=== PATIENT | female | born 1995 | race Caucasian/White ===

== ENCOUNTER 2018-12-22 18:55 | Inpatient (IN) | payer OTHER ==
[~2018-12-22] VITALS: Ht 157.5 cm; Wt 49.0 kg
[2018-12-22 18:55] VITALS: BP_SYST 120
--- NOTE | 2018-12-22 18:55 | NUR ---
BROUGHT IN BY [facility], PLACED IN BED #1 AND TRIAGED. REPORT GIVEN TO SUPERVISOR PHOTOSTAT
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
--- NOTE | 2018-12-22 20:15 | NUR ---
ER Dr. Brambila at bedside examining patient.
[2018-12-22] MEDS ORDERED: MORPHINE 4 MG/ML INJ. SYRINGE IVP ONE (20:30)
[2018-12-22] MEDS ORDERED: DIPHENHYDRAMINE INJ 50 MG/ML VIAL IVP ONE ×2 (20:30→22:00)
[2018-12-22] MEDS ORDERED: fentaNYL CITRATE/PF 100 MCG/2 ML AMP IVP ONE ×2 (21:15→22:00)
[2018-12-22] MEDS: NORMAL SALINE 5 ML DISP.SYRIN IVF SCH ×2 (22:00→22:52)
[2018-12-22] MEDS ORDERED: LORazepam 2 MG/ML VIAL IVP PRN (22:00)
[2018-12-22] MEDS ORDERED: MORPHINE 2 MG/ML INJ. SYRINGE IVP PRN (22:00)
[2018-12-22] MEDS ORDERED: ACETAMINOPHEN 325 MG TABLET PO PRN (22:00)
--- NOTE | 2018-12-22 22:00 | NUR ---
Posterior Long leg splint applied to patient's right leg. +cap refill observed in great toe. Pt tolerated well.
[2018-12-22 22:09] LABS: BASOPHILS % (AUTO) 0.2 % (0.0-2.0); EOSINOPHILS % (AUTO) 0.1 % (0.0-4.0); HEMATOCRIT 39.5 % (36-48); HEMOGLOBIN 13.9 g/dL (12.0-16.0); LYMPHOCYTES # (AUTO) 1.9 K/uL (1.0-5.5); LYMPHOCYTES % (AUTO) 12.3 % (20.5-51.5); MEAN CORPUSCULAR HEMOGLOBIN 33 pg (27-31); MEAN CORPUSCULAR HGB CONC 35 % (32-36); MEAN CORPUSCULAR VOLUME 94 fL (79.0-98.0); MONOCYTES # (AUTO) 0.8 K/uL (0.0-1.0); MONOCYTES % (AUTO) 5.5 % (1.7-9.3); NEUTROPHILS # (AUTO) 12.3 K/uL (1.8-7.7); NEUTROPHILS % (AUTO) 81.9 % (40.0-70.0); PLATELET COUNT (AUTO) 173 K/uL (130-430); RED BLOOD CELL COUNT(AUTO) 4.22 MIL/uL (4.2-6.2); RED CELL DISTRIBUTION WIDTH 12.4 % (9.0-15.0); WHITE BLOOD COUNT (AUTO) 15.1 K/uL (4.8-10.8)
--- NOTE | 2018-12-22 22:17 | NUR ---
Transfer to [facility]. IV present no sign or symptom of infiltration.
--- NOTE | 2018-12-22 22:17 | NUR ---
Patient will be admitted to care of Dr. Cielo Herbert. Admitted to Med Surg unit. Will go to room 109 C. Belongings list completed. Summary report printed. Report will be given at bedside.
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
[2018-12-22 22:21] LABS: CALCIUM 8.9 mg/dL (8.4-11.0); CREATININE 0.76 mg/dL (0.55-1.30); POTASSIUM 3.6 mmol/L (3.5-5.1)
[2018-12-22 22:47] VITALS: BP_SYST 125
--- NOTE | 2018-12-22 22:49 | NUR ---
Bedpan: Patient was assisted by GISELE Milligan to use bedpan. Unable to remove patient's black jeans due to right leg splint. Jeans removed using cassy, patient okay'd. Patient voided clear, yellow urine. Sample for urinalysis sent to lab.
--- NOTE | 2018-12-22 23:10 | NUR ---
Wound care: Abrasions present to patient's right knee, right hip, and left hip. Sites were cleansed with NS, patted dry with sterile gauze, covered with nonadhesive dressing, secured with 2 inch paper tape. Patient tolerated well.
[2018-12-23] VITALS: BP_SYST 124
[2018-12-23] MEDS: MORPHINE 4 MG/ML INJ. SYRINGE IVP PRN (01:36)
--- NOTE | 2018-12-23 01:36 | NUR ---
Pain: Patient complaining of RLE pain 8/10. Morphine 4 MG indicated. Education provided regarding indications and side effects, patient verbalized understanding. Medication administered intravenously per MD order via left AC IV site. No adverse effects noted. Call light with patient. Safety, fall precautions observed. Will continue monitoring.
[2018-12-23 02:10] LABS: BILIRUBIN,URINE NEGATIVE (NEGATIVE); BLOOD, URINE 3+ (NEGATIVE); CLARITY/URINE SL CLOUDY (CLEAR); COLOR,URINE YELLOW (YELLOW); GLUCOSE,URINE NEGATIVE (NEGATIVE); KETONES,URINE 1+ (NEGATIVE); LEUKOCYTE ESTERASE ,URINE 1+ (NEGATIVE); NITRITE, URINE NEGATIVE (NEGATIVE); PH,URINE 7.5 (5.0-8.0); PROTEIN URINE NEGATIVE (NEGATIVE); UROBILINOGEN,URINE 0.2 (0.2-1.0)
[2018-12-23 02:21] LABS: BACTERIA,URINE FEW /HPF (None Seen); RBC,URINE >100 /HPF (0-3)
--- NOTE | 2018-12-23 02:31 | NUR ---
Bedpan: Patient was assisted by charge nurse SARA Rose to use bedpan. Patient tolerated well. Call light with patient. Will continue monitoring.
[2018-12-23] MEDS: HYDROmorphone 1 MG INJ. 1 MG/ML AMPUL IVP PRN ×4 (04:59→22:04)
--- NOTE | 2018-12-23 04:59 | NUR ---
Pain: Patient complaining of RLE pain 9/. Dilaudid 1 MG indicated. Education provided regarding indications and side effects, patient verbalized understanding. Medication administered intravenously per MD order via left AC IV site. No adverse effects noted. Call light with patient. Safety, fall precautions observed. Will continue monitoring.
[2018-12-23] MEDS: NORMAL SALINE 5 ML DISP.SYRIN IVF SCH ×6 (05:04→22:04)
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
--- NOTE | 2018-12-23 06:50 | NUR ---
Closing note: Patient is resting in bed, no acute distress. Even, unlabored breathing on room air. IV site is patent and intact. Patient's mother is present at bedside. Call light with patient. All needs met. Safety, fall precautions observed. Hourly rounding performed throughout shift. Will endorse care to dayshift RN.
[2018-12-23 07:22] LABS: BASOPHILS % (AUTO) 0.3 % (0.0-2.0); HEMATOCRIT 38.3 % (36-48); HEMOGLOBIN 13.4 g/dL (12.0-16.0); LYMPHOCYTES # (AUTO) 1.2 K/uL (1.0-5.5); LYMPHOCYTES % (AUTO) 9.2 % (20.5-51.5); MEAN CORPUSCULAR HEMOGLOBIN 33 pg (27-31); MEAN CORPUSCULAR HGB CONC 35 % (32-36); MEAN CORPUSCULAR VOLUME 94 fL (79.0-98.0); MONOCYTES # (AUTO) 0.7 K/uL (0.0-1.0); MONOCYTES % (AUTO) 5.4 % (1.7-9.3); NEUTROPHILS # (AUTO) 11.2 K/uL (1.8-7.7); NEUTROPHILS % (AUTO) 85.1 % (40.0-70.0); PLATELET COUNT (AUTO) 227 K/uL (130-430); RED BLOOD CELL COUNT(AUTO) 4.09 MIL/uL (4.2-6.2); RED CELL DISTRIBUTION WIDTH 12.5 % (9.0-15.0); WHITE BLOOD COUNT (AUTO) 13.2 K/uL (4.8-10.8)
--- NOTE | 2018-12-23 07:38 | NUR ---
OPENING NOTE Patient resting in the bed. No acute distress. AAO X 4. Skin warm and dry to touch. SL intact to LAC, no redness, no swelling, patent. Right long sling in placed, pulse present, able to move toes. Discussed the safety issue, use call light when needs help, and plan of care, verbally understanding. Safety measure maintained. Call light within reached. Bed locked in low position, side rails up, bed alarm on. Parents at bedside. Will continue to monitor.
[2018-12-23 07:40] VITALS: BP_SYST 122
[2018-12-23 07:40] LABS: ALBUMIN 3.9 g/dL (3.4-4.8); CALCIUM 8.7 mg/dL (8.4-11.0); CREATININE 0.67 mg/dL (0.55-1.30); POTASSIUM 3.9 mmol/L (3.5-5.1); TOTAL BILIRUBIN 0.4 mg/dL (0.0-1.0)
--- NOTE | 2018-12-23 10:04 | NUR ---
DILAUDID GIVEN Patient c/o right lower leg pain 8/10, per patient Morphine not helped, Dilaudid 1mg IVP given as ordered. No acute distress. Family at bedside. Safety measure maintained. Call light within reached. Bed locked in low position, side rails up, bed alarm on. Will continue to monitor.
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
[2018-12-23 11:07] VITALS: BP_SYST 118
--- NOTE | 2018-12-23 12:40 | NUR ---
ROUND Patient resting in the bed. No acute distress. Right long sling in placed, pulse present, able to move toes. Safety measure maintained. Call light within reached. Bed locked in low position, side rails up, bed alarm on. Continue to monitor.
--- NOTE | 2018-12-23 13:21 | NUR ---
DC Planning: updated to fixed income analyst,Analilia # [phone] for possible transfer to [facility]. Analilia wll call back with decision once the case is reviewed by her medical team. Cm spoke with pt and family about dc planing and transfer process. They agreed with the transfer once seen by ortho and pt is stable for the transfer. Pt's mother/Cristin requested pt transfer to [facility]. -- Analilia made aware.
--- NOTE | 2018-12-23 13:55 | NUR ---
BEDPAN Assisted patient to use bed. Void freely, good pericare provided. Patient able to help to lift up the buttock. No c/o pain at this time. Right long leg splint on. Able to move toes, pulse present. Safety measure maintained. Call light within reached. Continue to monitor.
--- NOTE | 2018-12-23 14:40 | NUR ---
JACE Called Herb Menodza regarding the patient vomiting x3 after taken Dilaudid. Dr. Herbert with order of Zofran 4mg IVP Q4hr PRN, order read back and okay to
[2018-12-23] MEDS: ONDANSETRON HCL 4 MG/2 ML VIAL IVP PRN ×2 (14:49→18:54)
[2018-12-23 15:30] VITALS: BP_SYST 124
--- NOTE | 2018-12-23 16:18 | NUR ---
BEDPAN Assisted patient to use bed. Void freely, good pericare provided. Patient able to help to lift up the buttock. No c/o pain at this time. Safety measure maintained. Right long leg splint on. Able to move toes, pulse present. Call light within reached. Continue to monitor.
--- NOTE | 2018-12-23 17:45 | NUR ---
RECEIVED THE CALL BACK FROM DR. CARLTON WILL COME TO SEE THE PATIENT TONIGHT. PATIENT AND FAMILY MAKE AWAKE.
--- NOTE | 2018-12-23 17:48 | NUR ---
SEEN AND EXAMINED BY LOYD SMITH Assessed patient, answered the questions that the patient and families have at bedside.
--- NOTE | 2018-12-23 18:02 | NUR ---
DILAUDID GIVEN Patient c/o right lower leg pain 8/10, Dilaudid 1mg IVP given as order. Safety measure maintained. Call light within reached. Continue to monitor.
--- NOTE | 2018-12-23 18:35 | NUR ---
CLOSING NOTE Patient resting in the bed. No acute distress. AAO X 4. Pain med given as needed. Skin warm and dry to touch. SL intact to LAC, no redness, no swelling, patent. Right long sling in placed, pulse present, able to move toes.All needs met. Safety measure maintained. Call light within reached. Bed locked in low position, side rails up, bed alarm on. Family at bedside. Will endorse to night nurse.
--- NOTE | 2018-12-23 19:55 | NUR ---
Initial note: Received report from dayshift RN. Patient is awake in bed, no acute distress noted. Even and unlabored breathing on room air. IV site is patent and benign, saline locked. Long leg splint present to right leg. Patient's pain is controlled. Call light with patient. Safety, fall precautions in place. Will continue with plan of care.
[2018-12-23 20:00] VITALS: BP_SYST 114
--- NOTE | 2018-12-23 21:00 | NUR ---
Wound care: Wound care and dressing change performed for abrasions to right knee, left hip, and right hip. Patient tolerated well. Call light with patient. Will continue monitoring.
--- NOTE | 2018-12-23 22:04 | NUR ---
Pain: Patient complaining of right ankle pain 10/10. Per patient, Morphine 4 MG has been ineffective in pain relief. Dilaudid 1 MG indicated. Education provided regarding indications and side effects, patient verbalized understanding. Medication administered intravenously per MD order via left AC IV site. No adverse effects noted. Call light with patient. Safety, fall precautions observed. Will continue monitoring.
--- NOTE | 2018-12-23 23:51 | NUR ---
Bedpan: Patient was assisted by GISELE Avila to use bedpan. Patient tolerated well. Call light with patient. Will continue monitoring.
--- NOTE | 2018-12-24 01:39 | NUR ---
Dr. Cielo Herbert: Spoke with Dr. Cielo Herbert over phone. MD made aware regarding patient's request for Ibuprofen 400 MG for her headache, and that patient stated that Tylenol does not normally work for her. Order received to administer Ibuprofen 400 MG x1. Verified by read-back, RN to input.
[2018-12-24] MEDS ORDERED: IBUPROFEN 400 MG TABLET PO SCH (01:45)
[2018-12-24] MEDS: HYDROmorphone 1 MG INJ. 1 MG/ML AMPUL IVP PRN ×4 (02:10→17:41)
--- NOTE | 2018-12-24 02:10 | NUR ---
Pain: Patient complaining of RLE pain 8/. Dilaudid 1 MG indicated. Education provided regarding indications and side effects, patient verbalized understanding. Medication administered intravenously per MD order via left AC IV site. No adverse effects noted. Call light with patient. Safety, fall precautions observed. Will continue monitoring.
[2018-12-24 03:42] VITALS: BP_SYST 131
[2018-12-24] MEDS: NORMAL SALINE 5 ML DISP.SYRIN IVF SCH ×4 (06:00→14:11)
--- NOTE | 2018-12-24 07:10 | NUR ---
Closing note: Patient is resting in bed, no acute distress. Tolerating room air. IV site patent and benign. Dilaudid 1 MG administered per MD order for complaint of severe pain. All needs met. Safety and fall precautions observed. will endorse care to dayshift RN.
--- NOTE | 2018-12-24 07:30 | NUR ---
Opening Notes Patient received lying comfortably in her bed with respiration even and unlabored. Alert, awake and verbally responsive. Denies any pain or discomfort at this time. Splint to right leg on and in place, able to wiggle toes. Call light within the reach. Will continue to monitor.
[2018-12-24 07:59] LABS: BASOPHILS # (AUTO) 0.1 K/uL (0.0-0.2); BASOPHILS % (AUTO) 0.4 % (0.0-2.0); EOSINOPHILS % (AUTO) 0.2 % (0.0-4.0); HEMATOCRIT 38.8 % (36-48); HEMOGLOBIN 13.5 g/dL (12.0-16.0); LYMPHOCYTES # (AUTO) 1.7 K/uL (1.0-5.5); LYMPHOCYTES % (AUTO) 12.7 % (20.5-51.5); MEAN CORPUSCULAR HEMOGLOBIN 33 pg (27-31); MEAN CORPUSCULAR HGB CONC 35 % (32-36); MEAN CORPUSCULAR VOLUME 94 fL (79.0-98.0); MONOCYTES # (AUTO) 0.9 K/uL (0.0-1.0); MONOCYTES % (AUTO) 6.9 % (1.7-9.3); NEUTROPHILS # (AUTO) 10.6 K/uL (1.8-7.7); NEUTROPHILS % (AUTO) 79.8 % (40.0-70.0); PLATELET COUNT (AUTO) 226 K/uL (130-430); RED BLOOD CELL COUNT(AUTO) 4.14 MIL/uL (4.2-6.2); RED CELL DISTRIBUTION WIDTH 12.2 % (9.0-15.0); WHITE BLOOD COUNT (AUTO) 13.3 K/uL (4.8-10.8)
[2018-12-24 08:19] LABS: CREATININE 0.78 mg/dL (0.55-1.30); POTASSIUM 4.3 mmol/L (3.5-5.1)
[2018-12-24 08:30] VITALS: BP_SYST 109
[2018-12-24] MEDS: ONDANSETRON HCL 4 MG/2 ML VIAL IVP PRN ×2 (09:00→20:15)
--- NOTE | 2018-12-24 09:30 | NUR ---
RN ROUNDS Remain to be alert, awake and verbally responsive. Denies any pain or discomfort at this time. Call light within the reach.
--- NOTE | 2018-12-24 11:38 | NUR ---
RN ROUNDS Provided rest and comfort. Call light within the reach.
[2018-12-24 12:00] VITALS: BP_SYST 116
--- NOTE | 2018-12-24 13:00 | NUR ---
RN ROUNDS Patient remain to be alert, awake and verbally responsive, right leg splint in place and intact, ice pack applied and kept leg elevated. Call light within the reach.
--- NOTE | 2018-12-24 14:50 | NUR ---
Dr. Sylvester Rounds Seen and examined by Dr. Sylvester, per MD patient is good for transfer to [place].
[2018-12-24 16:00] VITALS: BP_SYST 121
--- NOTE | 2018-12-24 16:30 | NUR ---
Dr. Herbert at unit 'Dr. Herbert at the unit, notified regarding Dr. Sylvester' assessment and discharge plan with new order okay to discharge patient trabsfer to [facility], noted and carried out.
--- NOTE | 2018-12-24 18:30 | NUR ---
RN ROUNDS Patient resting well, family at bedside. Respiration even and unlabored. Call light within the reach.
--- NOTE | 2018-12-24 18:45 | NUR ---
Closing Notes Full SBAR report given to patient services technician at bedside, patient remain to be alert, awake and verbally responsive, Respiration even and unlabored. IVF infusing well. right leg kept elevated, splint on and in place. Call light within the reach. Endorsed to the next shift.
--- NOTE | 2018-12-24 19:35 | NUR ---
Opening note Patient resting in bed, awake AOx4. IV is SL to LAC. Nonlabored breathing on room air. VSS and presently reports pain 08/24, she was medicated with Dilaudid, will follow up.
--- NOTE | 2018-12-24 19:44 | NUR ---
[facility] CALLED FROM [facility] PT WILL BE GOING TO ROOM 5033 TO [facility]. POLITICAL CARTOONIST IS 2029 WITH [facility] FLANAGAN ACCEPTING DOCTOR IS DOCTOR LE. Sandi TO GIVE REPORT IS [phone]
[2018-12-24] MEDS: MORPHINE 4 MG/ML INJ. SYRINGE IVP PRN (20:15)
--- NOTE | 2018-12-24 20:15 | NUR ---
medication Patient reporting sever pain to RLL and administered morphine for severe pain as ordered and zofran for nausea. She was updated on status of transfer.
--- NOTE | 2018-12-24 20:31 | NUR ---
Report to ambulance Report given to LIZ Weaver
[2018-12-24 20:32] VITALS: BP_SYST 119
--- NOTE | 2018-12-24 21:00 | NUR ---
Discharge D/C Patient Patient given medication reconciliation form and D/C instructions. Exit Care provided. Patient verbalized understanding. MD discussed with patient the results and treatment provided. Transported via gurney by ambulance for transfer to [facility]. Patient in stable condition, ID band removed. IV catheter on LAC in place. Patient educated on pain management. All belongings sent with patient.
--- NOTE | 2018-12-24 21:01 | NUR ---
Report to [facility] Called [facility], and gave SBAR report to SARA Delgadillo.
== END 2018-12-24 21:00 | disposition short-term general hospital (02) | DRG 563 ==
LOC: SED 18:55 → SMU 21:40
PROVIDERS: ADMIT Preventive Medicine Preventive Medicine/Occupational Environmental Medicine; ATTEND Preventive Medicine Preventive Medicine/Occupational Environmental Medicine
DX: S82.841A Displaced bimalleolar fracture of right lower leg, initial encounter for closed fracture (principal); E87.1 Hypo-osmolality and hyponatremia; N39.0 Urinary tract infection, site not specified; S20.312A Abrasion of left front wall of thorax, initial encounter; S20.311A Abrasion of right front wall of thorax, initial encounter; S80.212A Abrasion, left knee, initial encounter; S30.811A Abrasion of abdominal wall, initial encounter; S80.01XA Contusion of right knee, initial encounter; R73.9 Hyperglycemia, unspecified; D72.829 Elevated white blood cell count, unspecified; V43.52XA Car driver injured in collision with other type car in traffic accident, initial encounter; Y93.89 Activity, other specified; Y92.488 Other paved roadways as the place of occurrence of the external cause; Y99.8 Other external cause status
CPT/HCPCS: 36415; 73590-TC; 80048; 80053; 81000-TC; 85025; 87086; 96374; 96375; 96376; 99285; J1170; J1200; J2270; J2405; J3010